=== PATIENT | male | born 1990 | race Caucasian/White ===

== ENCOUNTER 2017-10-01 13:34 | Emergency (ER) | payer OTHER ==
--- NOTE | 2017-10-01 15:08 | EDPHY ---
HPI/HX/ROS/PE/MDM Narrative: CHIEF COMPLAINT: Rib pain, abdominal bruising HPI: The patient is a 27 y/o male complaining of rib pain and abdominal bruising secondary to a fall on stairs at the [facility] 3 days ago. He thinks he fell about 10-15 steps and struck his left lower abdomen and right lateral ribs on the stairs during the fall. He did not strike his head and denies loss of consciousness. His rib pain worsened last night and caused difficulty sleeping so he went to urgent care this morning for evaluation. They did not perform any testing there, but due to the abdominal bruising they referred him here for evaluation. The patient denies midline neck or back pain, weakness, paresthesias, dyspnea, pleuritic pain, extremity injuries, nausea, vomiting, blood in his stool. He is normally healthy. REVIEW OF SYSTEMS: Aside from elements discussed in the HPI, a comprehensive 10-point review of systems was reviewed and is negative. PMH: Denies SOCIAL HISTORY: Girlfriend at bedside. 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 PHYSICAL EXAM: General:Patient is alert, in no acute distress. ENT:Eyes are normal to inspection. ENT inspection normal. Neck: Normal inspection. Full range of motion. Respiratory:No respiratory distress. Breath sounds normal bilaterally. Cardiovascular: Regular rate and rhythm. Strong peripheral pulses. Normal cap refill. Chest: Tenderness to right upper chest wall along the mid axillary line at level of the nipple, no crepitus. Abdomen:The abdomen is nontender to palpation. Ecchymosis without tenderness to LLQ. There are no peritoneal signs. There are normal bowel sounds. Back: Normal to inspection. No tenderness to palpation. Skin: Normal color. No rash. Warm and dry. Extremities: Normal appearance. Full range of motion. Neuro: Oriented x3. Normal motor function. Normal sensory function. ED Course: This is a healthy 27 y/o male who presents 3 days after falling down 10-15 stairs complaining of right-sided rib pain and abdominal bruising. He has tenderness over his right lateral ribs along his midaxillary line without crepitus or pleuritic pain and has equal breath sounds bilaterally. He has notable ecchymosis to his LLQ without tenderness and a normal neuro exam. I discussed indications for chest x-ray imaging and abdominal imaging, but as he is 3 days out from the injury and feeling okay apart from the rib pain he has opted to defer imaging or further work up at this time and is only requesting pain management. I discussed risks of not pursing imaging at this time including inability to identify internal bleeding and/or lung injury. He is comfortable accepting these risks at this time and understands warning signs that would indicate need for medical care. He will be discharged with standard rib contusion care and follow up instructions including a small script for [place]. Strict return precautions given. He is comfortable with plan for discharge home. MDM: This patient presents approximately 72 hours after fall with mild right rib pain and ecchymosis in LLQ abdomen. I recommended we perform CXR and CTAP as a minimum, but patient declines these tests. Given that his exam is quite reassuring and VS are normal this far out from injury, I have low suspicion for PTX, or severe abdominal injury, but patient understands we cannot rule out these injuries or other potential injuries without testing. He is sober and competent and understands risks of his decision including need for surgery, possible . General Time Seen by Provider: 10/01/17 14:59 Initial Vital Signs: Initial Vital Signs Temperature (C) 36.5 C 10/01/17 13:42 Heart Rate 76 10/01/17 13:42 Respiratory Rate 16 10/01/17 13:42 Blood Pressure 128/88 H 10/01/17 13:42 O2 Sat (%) 97 10/01/17 13:42 O2 Delivery Mode Room Air Allergies/Adverse Reactions: No Known Allergies Allergy (Unverified 04/23/13 11:15) Home Medications: Medication Instructions Recorded oxyCODONE/APAP 5/325 [Percocet 1 - 2 tab PO Q4H PRN #7 tab 10/01/17 5/325 (*)] Departure - Departure Disposition: Home, Routine, Self-Care Clinical Impression: Contusion of rib on right side Qualifiers: Encounter type: initial encounter Qualified Code(s): S20.211A - Contusion of right front wall of thorax, initial encounter Traumatic ecchymosis of abdominal wall Qualifiers: Encounter type: initial encounter Qualified Code(s): S30.1XXA - Contusion of abdominal wall, initial encounter Condition: Good Instructions: Rib Contusion (ED), Ecchymosis (ED) Additional Instructions: 1. Take 800mg ibuprofen every 8 hours for pain over the next several days. 2. Use [place] as prescribed when needed for severe pain. This medication can make you drowsy, do not use prior to driving. 3. Apply ice to sore areas if helpful for your pain. 4. Follow up with your primary care provider for unimproved symptoms over the next week. It can take many weeks for rib injuries to heal completely. 5. Return to the ED for severe abdominal pain, difficulty breathing, vomiting blood, blood in your stool, or other worsening of condition. Referrals: Chloé Bar DO [Doctor of Osteopathy] - As per Instructions [facility],. [Clinic] - As per Instructions Prescriptions: oxyCODONE/APAP 5/325 [Percocet 5/325 (*)] 1 - 2 tab PO Q4H PRN #7 tab PRN Reason: Pain, Severe Report Scribed for: Robin Garvin Report Scribed by: Deonna Bar Date of Report: 10/01/17 Time of Report: 15:00 Physician Review and Approval Statement: Portions of this note were transcribed by an ED scribe. I personally performed the history, physical exam, and medical decision making; and confirm the accuracy of the information in the transcribed note.
[2017-10-01 15:56] VITALS: BP 135/97; PULSE 84; RESP 15; TEMP 98.8; O2SAT 95
== END 2017-10-01 15:56 | disposition home or self-care (01) ==
DX: S20.211A Contusion of right front wall of thorax, initial encounter (principal); S30.1XXA Contusion of abdominal wall, initial encounter; W10.8XXA Fall (on) (from) other stairs and steps, initial encounter